=== PATIENT | male | born 2000 | race African-American/Black ===

== ENCOUNTER 2024-02-20 05:57 | Day surgery (SDC) | payer OTHER ==
[~2024-02-20] VITALS: Ht 175.3 cm; Wt 89.9 kg
[2024-02-20] MEDS ORDERED: LIDOCAINE 2% 100MG/5ML SDV (FOR ANES.) As Ordered ONE (07:22)
[2024-02-20] MEDS ORDERED: fentaNYL 100 MCG/2 ML INJECTION As Ordered ONE (07:22)
[2024-02-20] MEDS ORDERED: ONDANSETRON 4MG 2ML VIAL As Ordered ONE (07:22)
[2024-02-20] MEDS ORDERED: propofoL 200 MG/20 ML VIAL As Ordered ONE (07:22)
[2024-02-20] MEDS ORDERED: ROCURONIUM BROMIDE 50MG/5ML VIAL As Ordered ONE (07:22)
[2024-02-20] MEDS ORDERED: MIDAZOLAM INJ 2MG/2ML VIAL As Ordered ONE (07:22)
[2024-02-20] MEDS: ceFAZolin SOD 2 GM in IV 1 EA IV ONE (07:35)
[2024-02-20] MEDS: TRANEXAMIC ACID 100 MG/ML 10ML VIAL IV ONE (07:52)
[2024-02-20] MEDS ORDERED: ACETAMINOPHEN 1000MG 100ML IV BAG As Ordered ONE (08:12)
[2024-02-20] MEDS: EPINEPHrine 1MG/ML INJ 30ML MD-VIAL As Ordered ONE (08:20)
[2024-02-20] MEDS ORDERED: fentaNYL 100 MCG/2 ML INJECTION IV PRN (09:00)
[2024-02-20] MEDS ORDERED: ONDANSETRON 4MG 2ML VIAL IV PRN (09:00)
[2024-02-20] MEDS: TRANEXAMIC ACID 100 MG/ML 10ML VIAL As Ordered ONE (09:10)
[2024-02-20] MEDS: oxyCODONE 5MG TAB PO PRN (09:50)
[2024-02-20 10:09] VITALS: BP 122/60
[2024-02-20] MEDS ORDERED: LR 1,000 ML IV SCH (10:15)
[2024-02-20 10:29] VITALS: TEMP 96.7; O2SAT 99
== END 2024-02-20 10:35 | disposition home or self-care (01) ==
LOC: M SDC 05:57
PROVIDERS: ATTEND Orthopaedic Surgery
DX: M33.12 Other dermatomyositis with myopathy (principal); M22.42 Chondromalacia patellae, left knee; M67.52 Plica syndrome, left knee
CPT/HCPCS: 27412; 29881; J0131; J0171; J0665; J0690; J1100; J2250; J2405; J3010